=== PATIENT | male | born 1935 | race Caucasian/White ===

== ENCOUNTER 2017-06-06 11:20 | Day surgery (SDC) | payer MEDICARE, OTHER ==
[~2017-06-06] VITALS: Ht 168.9 cm; Wt 97.5 kg
[~2017-06-06 11:20] MED LIST: 0.9% Sodium Chloride 1,000 ML IV SCH; ASCO500C6 PO; CHOL200025 PO; DICL100G8 TOPICAL; SIMV20TA4 PO; Sodium Chloride LOK Flush 10 mL Syringe IV PRN; VIT1TABL83 PO; fentaNYL-PF 50 mCg/mL 2 mL Inj IVPUSH PRN
[2017-06-06 11:50] VITALS: BP 136/79; PULSE 47; RESP 15; O2SAT 97
[2017-06-06 12:18] VITALS: BP 142/88; PULSE 73; RESP 16; O2SAT 98
[2017-06-06 12:26] VITALS: BP 134/86; PULSE 82; RESP 14; O2SAT 97
--- NOTE | 2017-06-06 13:23 | ENDO ---
[address] [address] ENDOSCOPY PROCEDURE PATIENT: ELLEN LU : 1935 MR#: [id number] ADMIT: 06/06/2017 JOB ID: [id number] DATE: 06/06/2017 TYPE OF OPERATION: Colonoscopy with biopsy. PREOPERATIVE DIAGNOSIS(ES): History of tubular adenoma polyps. POSTOPERATIVE DIAGNOSIS(ES): 1. A 3 mm cecal polyp removed by cold biopsy forceps. 2. Mild sigmoid diverticulosis. ANESTHESIA: 1. Fentanyl 62.5 mcg. 2. Versed 2.5 mg IV administered. COMPLICATIONS: None. BLOOD LOSS: Minimal. DESCRIPTION OF PROCEDURE: After risks and benefits were explained to the patient, informed consent was obtained. After anesthesia administered, colonoscope was then inserted per rectum to cecum. Mucosa carefully examined. Prep of the patient was fair. After the procedure was done, the scope was withdrawn and procedure terminated. FINDINGS: Upon inspection of the anus, no masses, hemorrhoids, ulcers, fissures are seen. Throughout the entire examination, there is a 3 mm cecal polyp removed by cold biopsy forceps. There is mild sigmoid diverticulosis. Retroflexion was normal. IMPRESSIONS: 1. Mild sigmoid diverticulosis. 2. A 3 mm cecal polyp removed by cold biopsy forceps. RECOMMENDATION: 1. Await pathology results. 2. Repeat colonoscopy in five years given history of tubular adenoma polyps.
--- NOTE | 2017-06-10 15:28 | PATH ---
SURGICAL PATHOLOGY Attending Physician:Juan Jose Mcelroy MD CASE STATUS: Signed Out PATIENT NAME: ELLEN LU PID: [id number] : 1935 DATE COLLECTED:06/06/2017 19:30 SPECIMEN: Colon, Polyp CLINICAL HISTORY: 1). CECAL POLYP FINAL DIAGNOSIS: 1.CECAL POLYP, BIOPSY: - COLONIC MUCOSA WITH NO DIAGNOSTIC ABNORMALITY, CONSISTENT WITH POLYPOID REDUNDANCY. - Additional deeper levels examined. COMMENT: As part of routine quality control tech, the case was also reviewed by Dr. Gilliam who agrees with the above interpretation. ICD10 K57. GROSS DESCRIPTION: The specimen is received in one formalin filled container labeled with the patient's name, sublabeled "cecal polyp" and consists of a 0.3 x 0.2 x 0.2 CM portion of tissue which is entirely submitted in one cassette. 06/06/2017DC MICRO DESCRIPTION: See diagnosis. ICD-9 CODES: CPT CODES: 1: 14665 Electronically Signed Out Ander Garner MD [facility] [address], [place] [address] Technical component performed at [facility], [address] [place] [address] Ave[address], [place], [address]
== END 2017-06-06 23:59 | disposition home or self-care (01) ==
LOC: END 11:20
PROVIDERS: ATTEND Internal Medicine Gastroenterology
DX: Z12.11 Encounter for screening for malignant neoplasm of colon (principal); Z86.010 Personal history of colon polyps; K63.5 Polyp of colon; K57.30 Diverticulosis of large intestine without perforation or abscess without bleeding; R73.03 Prediabetes; E78.5 Hyperlipidemia, unspecified; F17.210 Nicotine dependence, cigarettes, uncomplicated
CPT/HCPCS: 45380; 88305; G0500; J2250; J3010; J7030

== ENCOUNTER 2017-06-30 17:55 | Observation (INO) | payer MEDICARE, OTHER ==
[~2017-06-30] VITALS: Ht 170.2 cm; Wt 110.0 kg
[~2017-06-30 17:55] MED LIST changes: -0.9% Sodium Chloride 1,000 ML IV SCH; -Sodium Chloride LOK Flush 10 mL Syringe IV PRN; -fentaNYL-PF 50 mCg/mL 2 mL Inj IVPUSH PRN
[2017-06-30 18:07] VITALS: BP 169/97; PULSE 75; RESP 16; O2SAT 92
[2017-06-30 19:03] LABS: BASOPHILS % (AUTO) 0.3 % (0-3); EOSINOPHILS % (AUTO) 3.1 % (0-5); MONOCYTES % (AUTO) 8.7 % (4-12); Mean Corpuscular Hemoglobin 33.6 pg (27.0-35.0); Mean Corpuscular Volume 97.2 fL (81-100); NEUTROPHILS % (AUTO) 58.9 % (40-74); Platelet Count 166 bil/L (150-400)
--- NOTE | 2017-06-30 19:04 | DRSVH ---
PROCEDURE: X-RAY CHEST ONE VIEW, PORTABLE ([id number]) INDICATIONS: pain TECHNIQUE: One view of the chest was acquired. COMPARISON: None. FINDINGS: Surgical changes and devices: None. Lungs and pleura: No pleural effusions or pneumothorax. Lungs are clear. Mediastinum: Mediastinal contours appear normal. Heart size is normal. Bones and chest wall: No suspicious bony lesions. Overlying soft tissues appear unremarkable. IMPRESSION: No acute pulmonary process. Dictated by: Radha Dobbs M.D. on 06/30/2017 at 19:02 Approved by: Radha Dobbs M.D. on 06/30/2017 at 19:03
--- NOTE | 2017-06-30 19:10 | ED.REPORT ---
HPI-Chest Pain 40 and Over Date of Service Jun 30, 2017 ED Provider: Sriram Dunbar MD An 82 year old male with a history of hyperlipidemia heart murmur, aortic valve stenosis on Pradaxa and pre-diabetes presents to the ED following an episode of sudden onset chest pain that occurred this afternoon. The episode lasted approx. 5 minutes and has completely resolved upon initial examination. He reports heavy exertion prior to symptom onset and has experienced similar pain in the past during exertion. The pain radiated to his right arm and jaw. Symptom onset occurred while the patient was loading boxes into his car. He contacted his adjunct nursing faculty who directed him to the ED for further evaluation. Patient has been taking the Pradaxa for the past 2 weeks. Nursing Notes Stated Complaint: CARDIOLOGY Chief Complaint: Chest Pain Nursing Notes Reviewed: Yes (Fleck not reconciled, ?on Pradaxa) Allergies: Coded Allergies: adhesive (Verified Adverse Reaction, Unknown, 06/30/17) Scheduled Ascorbic Acid (Vitamin C) 500 Mg Capsule.er 1,000 MG PO HS Cholecalciferol (Vitamin D3) (Vitamin D3) 2,000 Unit Tablet 2,000 UNIT PO HS Dabigatran Etexilate Mesylate (Pradaxa) 150 Mg Capsule 150 MG PO BID Simvastatin (Simvastatin) 20 Mg Tablet 20 MG PO HS Vit B Comp/C/FA/Iron/Vit E (Vitamin B Complex Tablet) 1 Each Tablet 1 EACH PO HS Scheduled PRN Diclofenac Gel (Voltaren Gel) 100 Gm Tube 1 APPLIC TOPICAL DAILY PRN PRN For Pain General Time Seen by MD: 19:08 Chief Complaint Chest pain Hx Obtained From: Patient Arrived By: Walk-in Sudden in Onset?: Yes Symptom Duration: Since onset Location: : Chest left: Chest right Quality: Painful Radiation: : Jaw: Shoulder right Migration/Movement: Reports: None Severity: Current: No pain currently Severity: Maximum: Moderate Pertinent Negative: Pt denies other symptoms Recent Healthcare: No recent doctor visit, No recent hospitalization Risk Factors )( CAD Risk Stratification HyperlipidemiaNo Diabetes mellitus, No Known CAD Risk factors reviewed )( TAD Risk Stratification Risk factors reviewed )( PE Risk Stratification Risk factors reviewed Past Medical History Past Medical History Hyperlipidemia Heart Murmur Aortic stenosis on Pradaxa Pre-diabetes Tobacco use disorder Denies: Coronary artery disease Past Surgical History Colon polyp removal Family History Reports: Coronary artery disease Smoking History Light Tobacco Smoker Social History Other Social History: Good social support, Local resident Ambulatory Status Independent Review of Systems + jaw pain Cardiovascular: Reports: Chest pain Musculoskeletal: Reports: Extremity pain (Radiates to R arm) Complete sys rev & neg: except as marked. Physical Exam Initial Vital Signs Vital Signs (First) Date Time Temp Pulse Resp B/P Pulse Ox O2 Delivery O2 Flow Rate FiO2 06/30/17 18:07 36.5 75 16 169/97 92 Room Air Initial VS: Reviewed, Vital signs normal Head / Eyes: Atraumatic, Normocephalic, PERRL Neck: Supple, Non-tender, Full range of motion Extremities: Vascular intact, Neuro intact, No swelling, No tenderness Skin: Warm, Dry, No cyanosis Neurologic: Alert, Oriented, Nonfocal Psychiatric: Mood/affect normal, Behavior normal, Normal thought content General/Constitutional: Awake, Alert, No acute distress Respiratory / Chest: Atraumatic, Breath sounds NL, Breath sounds = bilat, No respiratory distress, No chest tenderness Cardiovascular: Heart rate NL, Regular rhythm Heart Sounds / Murmur: Positive: Murmur present... (III/) Abdomen: Atraumatic, Soft, Non-tender Interpretation & Diagnostics Lab Results Interpretation Result Diagram: 06/30/17 1845 06/30/17 1845 Test 06/30/17 18:45 White Blood Count 6.4th/mm3 (3.8-10.1) Red Blood Count 4.26mil/mm3 (4.40-5.80) Hemoglobin 14.3g/dL (13.8-17.2) Hematocrit 41.4% (41.0-50.0) Mean Corpuscular Volume 97.2fL (81-100) Mean Corpuscular Hemoglobin 33.6pg (27.0-35.0) Mean Corpuscular Hemoglobin Concent 34.5% (32.0-37.0) Red Cell Distribution Width 12.5% (12.3-15.4) Platelet Count 166bil/L (150-400) Neutrophils (%) (Auto) 58.9% (40-74) Lymphocytes (%) (Auto) 28.4% (14-46) Monocytes (%) (Auto) 8.7% (4-12) Eosinophils (%) (Auto) 3.1% (0-5) Basophils (%) (Auto) 0.3% (0-3) Prothrombin Time 11.1sec (8.1-12.5) Prothromb Time International Ratio 1.04ratio Activated Partial Thromboplast Time 34.1sec (22.8-33.0) Sodium Level 141mEq/L (134-144) Potassium Level 4.0mEq/L (3.5-5.2) Chloride Level 104mEq/L (97-108) Carbon Dioxide Level 20mmol/L (18-29) Blood Urea Nitrogen 23mg/dL (8-27) Creatinine 1.26mg/dL (0.76-1.27) Estimat Glomerular Filtration Rate 59mL/min (>59) Glucose Level 81mg/dL (60-99) Calcium Level 9.7mg/dL (8.5-10.1) Magnesium Level 2.0mg/dL (1.6-2.6) Total Bilirubin 0.5mg/dL (0.0-1.2) Aspartate Amino Transf (AST/SGOT) 33U/L (0-50) Alanine Aminotransferase (ALT/SGPT) 47U/L (0-44) Alkaline Phosphatase 33U/L (25-160) Total Creatine Kinase 99U/L (21-232) Creatine Kinase MB 4.9ng/mL (0.0-10.4) Creatine Kinase MB % % (0.0-5.0) Troponin T < 0.010ug/L (0.0-0.011) Total Protein 7.1g/dL (6.4-8.4) Albumin 4.3g/dL (3.4-5.0) Thyroid Stimulating Hormone (TSH) 5.210uIU/mL (0.450-4.500) Hold Means Top Tube Received (Received) Lab Results Interpretation: CBC normal CMP normal Troponin #1 negative ECG Interpretation ECG Interpretation: Rate controlled A-fib Nonspecific intraventricular conduction delay No EKG available within our current EMR for comparison Time: 19:22 Interpreted by: ED physician X-Ray Chest Interpretation Chest Xray Interpretation: IMPRESSION: No acute pulmonary process. Dictated by: Radha Dobbs M.D. on 06/30/2017 at 19:02 Interpretation / Wet Read by: Interpret - Radiologist Re-Eval/Medical Decision Med Decision/Clinical Course This is a pleasant 82-year-old male without known prior coronary artery disease , does have a history of hyperlipidemia and is recently been diagnosed with atrial fibrillation and valvular disease with preserved EF on echocardiogram [address] Navarro the adjunct nursing faculty in consultation and was started on the anticoagulant Pradaxa for his chronic A. fib. The patient presents today with concern he may be having symptoms from the Pradaxa, however he describes her concerning presentation for possible angina: He has noted exertional chest pressure discomfort radiating to the shoulder and up into the jaw and neck there is relieved with rest, has been occurring with increasing frequency in recent days. Today cost, lifting some moderately heavy bottles, he developed the worst episode of the discomfort, but it resolved after about 5 minutes of rest. Call his adjunct nursing faculty in office and they advised him to come to the ED. He is asymptomatic here. He has not had stress testing. Patient clinically appears well and sitting no strenuous. He is in rate- controlled atrial fibrillation, no ischemic changes are evident on the EKG. Chest x-ray and lateral is normal. His last dose of Pradaxan was yesterday. He received aspirin and nitroglycerin in the department after discussion with cardiology. Given his clinical presentation is concerning for new onset angina , the patient's being admitted for serial enzymes and if those are negative, stress testing be considered. I discussed the case with cardiology for their recommendations (which including holding tonight's Pradaxa and using just ASA overnight tonight), a formal inpatient consultation is not yet been requested- and the plan is to have the hospitalist in the morning contact Dr. Navarro, the primary adjunct nursing faculty tomorrow as he is on for inpatient consultations (barring any clinical changes in the interim) Patient is admitted in stable condition. Source of Hx: Old records Time of Eval: 19:42 Patient Status: Pain resolved Re-Evaluation/Progress Note: Patient condition is re-evaluated. He is informed of his current and pending results. Patient is offered admission to the hospital and agrees with the plan to admit. All questions about the intended treatment plan are addressed. Consultation #1: Referral / Consult Name: Lisa Martin MD Consulted With: Cardiology Call Returned at: 19:56 Family Service Caseworker: Will see patient, Agrees with eval, Agrees with plan, Accepts admit Note: NOT OFFICIAL CONSULT: Discussed patient condition. Recommends against Pradaxa dose this evening. Will give aspirin and evaluate lab results. Consultation #2: Referral / Consult Name: Domo Coats MD Consulted With: Hospitalist Call Returned at: 20:11 Family Service Caseworker: Will see patient, Agrees with eval, Agrees with plan, Accepts admit Note: Will accept admission. Differential Diagnosis: Positive: Chest pain, acute, Dysrhythmia, Negative: Esophageal rupture, Pneumonia, Pneumothorax, Pulmonary edema, Pulmonary embolism, Rib fracture, Stab wound chest Counseled Regarding: Diagnosis, Lab results, Need for admission Discharge & Departure Primary Impression: Unstable angina Disposition: ADMITTED TO HOSPITAL Discharge Condition All VS Reviewed: Yes Condition: Stable Referrals: Victorino Hedrick DO (PCP) Scribe Attestation Portions of this note were transcribed by Ayo Salcedo. I, Dr. Dunbar, personally performed the history, physical exam and medical decision-making; I reviewed and confirmed the accuracy of the information in the transcribed note. Signed by: Ayo Salcedo, 06/30/17. copies to: Victorino Hedrick Matthew F MD Jun 30, 2017 19:10 AYO SALCEDO Jun 30, 2017 19:30
[2017-06-30 19:19] LABS: TROPONIN T < 0.010 ug/L (0.0-0.011)
[2017-06-30 19:54] VITALS: BP 156/67; PULSE 78; RESP 20; O2SAT 98
[2017-06-30] MEDS ORDERED: Nitroglycerin 2% 1 Gm Ointment TOPICAL SCH (20:00)
[2017-06-30] MEDS ORDERED: Alum-Mag Hydrox-Simeth 30 mL Suspension PO PRN (20:20)
[2017-06-30] MEDS ORDERED: Polyethylene Glycol (PEG) 17 Gm Powder PO PRN (20:20)
[2017-06-30] MEDS ORDERED: Ondansetron 2 mg/mL 2 mL Inj IVPUSH PRN (20:20)
[2017-06-30] MEDS ORDERED: Atropine 1 mg/10 mL (Code) Syringe IVPUSH PRN (20:20)
[2017-06-30] MEDS ORDERED: Senna-Docusate 8.6-50 mg Tablet PO PRN (20:20)
--- NOTE | 2017-06-30 20:44 | PCM.HPMED ---
Subjective Date of Service Jun 30, 2017 Primary Provider: Admitting Physician: Primary Care Physician: Victorino Hedrick DO Attending Physician: Admit Status: From the Emergency Department Chief Complaint: Chest pain on exertion History of Present Illness: Patient is an 82-year-old male with a history of hyperlipidemia, A. fib, and heart murmur present to the ED after an episode of chest pain on exertion. Patient presented today after he was told to seek medical help when he called his compliance nurse's office. He had been lifting boxes into his truck when he developed significant chest pain that radiated into his jaw, left eye, and down his left arm. He was unable to describe the quality of this pain but states that he has been having similar episodes for approximately 2 weeks. He has attributed the symptoms to his initiation of Pradaxa a couple of weeks ago. Symptoms resolved in less than 5 minutes of rest. Patient admits to sweating during these episodes. Patient denies nausea, vomiting, numbness, headache, shortness of breath, bleeding, bruising. Of note, patient is a poor historian with limited awareness of his medical conditions. Review of Systems: Complete ROS was performed and pertinent positives and negatives included in the history of present illness. All other findings were negative. Allergies Coded Allergies: adhesive (Verified Adverse Reaction, Unknown, 06/30/17) Home Medications From [facility], not yet confirmed [employer] [id number] 1935 06/19/2017 02:00 PM 10/25 metronidazole 0.75 % topical gel apply by topical route 2 times every day a thin layer to the affected area(s) in the morning and evening Pradaxa 150 mg capsule take 1 capsule by oral route 2 times every day simvastatin 20 mg tablet take 1 tablet by oral route every day in the evening sulfacetamide sodium-sulfur 10 %-5 % (w/w) topical cleanser cleanse face 1-2 times daily Sumaxin CP 10 %-4 % topical kit cleanse face 1-2 times daily vitamin B complex capsule 1 cap by mouth per day Vitamin C 1,000 mg tablet 1 tab by mouth daily Vitamin D3 2,000 unit capsule 1 cap by mouth daily Voltaren 1 % topical gel apply (2G) by topical route 3 times every day to the affected area(s) as needed for pain. PMH 1. Atrial fibrillation, diagnosed approximately 2 weeks ago 2. Heart murmur 3. Prediabetes 4. Hyperlipidemia Surgical History 1. Bilateral hip replacement 2. Varicose Vein removed right leg 3. Jaw surgery Family History 1. Mother stroke at age in 80s 2. Father had heart disease Social History Hx Alcohol Use: Yes (1 to 2 glasses of wine daily) Hx Substance Use: No Hx Tobacco Use: Yes (Occasional pipe smoking) Smoking Status: Light Tobacco Smoker Living Arrangement: Alone Exam Vital Signs Vital Sign - Last Date Time Temp Pulse Resp B/P Pulse Ox O2 Delivery O2 Flow Rate FiO2 06/30/17 19:54 78 20 156/67 98 06/30/17 18:07 36.5 Room Air Exam General: Nondistressed, well-developed well-nourished male HEENT: NC/AT, PERRLA, EOM intact. Nontender sinuses, no nasal discharge. Good dentation, no erythema, nor exudate present in oropharynx. No thyromegaly appreciated. CV: Irregular rate, systolic murmur appreciated best over left sternal border. No carotid bruits appreciated, pulses 2+ bilaterally lower extremity and upper extremity. RESP: Clear to auscultation bilaterally, no wheezes or rhonchi appreciated ABD: Bowel sounds normal, nondistended, nontender to palpation. EXT: No joint swelling, no edema appreciated LYMPH: No cervical or axillary adenopathy appreciated NEURO: Symmetric face, cranial nerves grossly intact, strength intact bilaterally upper and lower extremities, sensation to light touch intact bilaterally upper and lower extremities. PSYCH: Oriented 3. Linear and appropriate conversation. Skin: No rashes or ecchymosis appreciated. Pigment changes in lower extremities consistent with venous stasis Lab and Diagnostics Result Diagram: 06/30/17184406/30/171844 Assessment & Plan Patient is an 82-year-old male with a recent diagnosis of atrial fibrillation and heart murmur presented with chest pain 1. Chest pain on exertion, present upon admission and ongoing Patient has several risk factors for coronary disease and his story is convincing -Negative troponin 1 -Negative CK-MBs - holding dose of Pradaxa in case he needs invasive cardiac procedures -Stress test tomorrow AM 2. Atrial fibrillation, present on admission and ongoing -Hold blood thinner for the time being, patient believes this is contributing to his chest pain 3. Hypothyroidism, present upon admission and ongoing -This is a new diagnosis discovered with admission. TSH of 5.64 -Start patient on 12.5mcg levothyroxine, recommend outpatient follow-up -This may be contributing to his atrial fibrillation and chest pain 4. Hyperlipidemia, present upon admission and ongoing -Continue home medications 5. Normocytic anemia, present upon admission and ongoing -patient has RBC of 4.26 on admission with all other CBC values as normal. -Patient had colonoscopy 2 weeks ago with the removal of one polyp -In the setting of blood thinners with recent colonoscopy, patient may have a slow bleed. Stool Guaic pending Patient is being admitted as observation status. I expect her to spend less than 2 midnights in the hospital Pain Evaluation: Adequate Pain Control VTE Prophylaxis: SCDs Resuscitation Status: DNR/DNI:Do Not Resuscitate/Intubate Attending Statement The patient was seen and examined together with Dr. Henao on 06/30 and I agree with the history, exam and plan as outlined in the note above. Lissa Henao DO Jun 30, 2017 20:43 Domo Coats MD Jul 01, 2017 06:46
[2017-06-30 20:51] LABS: INR 1.04 ratio
[2017-06-30 20:56] VITALS: BP 146/68; PULSE 79; RESP 20; O2SAT 98
[2017-06-30 20:59] LABS: Creatine Kinase 99 U/L (21-232)
[2017-06-30] MEDS ORDERED: DABI150C PO (21:18)
[2017-06-30 22:15] VITALS: PULSE 81
[2017-06-30 22:28] VITALS: BP 164/81; PULSE 67; RESP 21; O2SAT 95
--- NOTE | 2017-06-30 23:01 | NUR ---
Admission Pt admitted for exertional chest pain. He is pain free at present. Oriented to room/call light/bathroom. Telemetry is afib. Pt understands to report to nursing for any further episode of chest pain Will cont to monitor
[2017-06-30] MEDS: 0.9% Sodium Chloride 1,000 ML IV SCH (23:53)
--- NOTE | 2017-07-01 00:15 | PCM.ADCARE ---
Advance Care Planning Note Purpose of Encounter: Active Diagnoses: Persistent Atrial fibrillation Prediabetes Hyperlipidemia These active diagnoses are sufficient risk that focused discussion on advance car planning is indicated in order to allow the patient to thoughtfully consider personal goals of care and if situations arise that prevent the ability to personally give input to insure appropriate representation of their personal desires through documentation or informed surrogate decision makers Parties in Attendance: me and patient Decisional Capacity: Good Goals of Care Determinations: I reviewed all his medical conditions and his desires for ongoing aggressive care, including potential intubation and mechanical ventilation as well as CPR. Also discussed who would speak on his behalf should he be unable to do so, she states his [employer] has Power of Insurance Verification Clerk Patient has expressed wish to be DNR/DNI. Absolutely no resuscitation or heroic measures CODE STATUS: DNR/DNI Time Spent Adv.Care Planning: Total time spent txne-ap-cloc in education and discussion directly related to Advance Care Plannin minutes Domo Coats MD Jul 01, 2017 00:15
[2017-07-01] MEDS: Sodium Chloride LOK Flush 10 mL Syringe IVFLUSH SCH ×3 (01:01→16:30)
[2017-07-01 02:12] LABS: BASOPHILS % (AUTO) 0.2 % (0-3); EOSINOPHILS % (AUTO) 3.4 % (0-5); MONOCYTES % (AUTO) 9.2 % (4-12); Mean Corpuscular Hemoglobin 33.4 pg (27.0-35.0); Mean Corpuscular Volume 97.4 fL (81-100); NEUTROPHILS % (AUTO) 50.7 % (40-74); Platelet Count 157 bil/L (150-400)
[2017-07-01 03:46] VITALS: BP 136/73; PULSE 60; RESP 20; O2SAT 96
[2017-07-01 03:57] LABS: Creatine Kinase 69 U/L (21-232)
[2017-07-01 04:01] LABS: TROPONIN T < 0.010 ug/L (0.0-0.011)
[2017-07-01 04:54] VITALS: BP 161/90
--- NOTE | 2017-07-01 05:27 | PCM.PNMED ---
Subjective Date of Service Jul 01, 2017 Subjective Rapid response called on patient after loom fixer helper noted a 10 seconds pause. Patient was sleeping and was asymptomatic Patient will be transferred to [facility] for close monitoring Domo Coats MD Jul 01, 2017 05:27
--- NOTE | 2017-07-01 05:40 | NUR ---
Telemetry Pt had a 10sec pause. PHYS ASST called by mri ct tech. Pt shouted, "I'm OK!" when he was suddenly awakened (pt had been sleeping). VS stable. aware of the pause. Orders received to transfer the pt to [facility] I explained to pt that he would move to the cardiac floor. Pt verbalized understanding.
[2017-07-01 05:41] LABS: APPEARANCE,URINE CLEAR (CLEAR,HAZY); COLOR,URINE YELLOW (YELLOW); OCCULT BLOOD,URINE NEGATIVE (NEGATIVE); PH,URINE 5.5 (5.0-8.0); UROBILINOGEN,URINE NORMAL (NORMAL)
[2017-07-01 08:15] VITALS: BP 131/78; PULSE 63; RESP 20; O2SAT 96
[2017-07-01 08:49] VITALS: PULSE 60
[2017-07-01] MEDS: 0.9% Sodium Chloride 1,000 ML IV SCH (08:49)
[2017-07-01 13:29] VITALS: BP 151/73; PULSE 67; RESP 24; O2SAT 98
--- NOTE | 2017-07-01 13:59 | NUR ---
Case Management: SCAR given and explained to pt. Ame MOTA RN
--- NOTE | 2017-07-01 14:37 | DRSVH ---
PROCEDURE: 1 DAY TREADMILL STRESS TEST Rest and exercise myocardial perfusion SPECT; gated images not acquired. RADIOPHARMACEUTICAL: 9.66 mCi Tc-99m tetrafosmin IV at rest and 31.3 mCi Tc-99m tetrafosmin IV at pe ak exercise. [id number] was performed. INDICATIONS: chest pain on exertion. TECHNIQUE: Radiopharmaceutical was injected at peak stress test, and also at rest. SPECT images wer e obtained. SPECT myocardial perfusion images were displayed in short axis, horizontal long axis, an d vertical long axis views. Images were reviewed using [employer] software. COMPARISON: None. CARDIAC STRESS: A manual treadmill exercise tolerance test was performed by the patient under the supervision of an a ttending staff. The patient exercised for 1 minute and 58 seconds; functional aerobic impairment (FA I) is +50 %. Hemodynamic data: There is normal blood pressure and heart rate response to exercise stress. Patien t achieved 122% of maximum predicted heart rate at peak exercise. Symptoms: Patient denied chest pain during exercise. EKG: Baseline EKG show atrial fibrillation. With minimal exertion there was rapid ventricular respon se and hypertensive blood pressure response. The resting blood pressure was 132/68 mmHg and at peak s tress the blood pressure was 220/100 mmHg. At baseline heart rate was 76 beats per minute at peak str ess the heart rate was 168 beats per minute. FINDINGS: Raw data: There is good myocardial labeling by radiotracer. No significant motion artifacts. Left ventricle function: Gated images were unable to be obtained for evaluating wall motion and ejec tion fraction, due to irregular heart rate. Myocardial perfusion: There is a mild perfusion defect involving the inferior wall. However the perfu kylah defect improves with prone stress imaging. Quantitative analysis has a sum stress score of zero. IMPRESSION: Normal myocardial perfusion study. Normal LV ejection fraction without focal wall motion on mellitus. No evidence of ischemia on treadmill EKG however there is presence of rapid ventricular heart rate response in the setting of atrial fibrillation. There is also hypertensive blood pressure response as described above. Patient has poor exercise tolerance. Overall there is no evidence of sig nificant ischemia based on today's perfusion images. Dictated by: Arjun Tuttle Jr., M.D. on 07/01/2017 at 14:29 Approved by: Arjun Tuttle Jr., M.D. on 07/01/2017 at 14:35
--- NOTE | 2017-07-01 16:45 | PCM.DIMED ---
Miguel Angel Henry DO 07/01/17 1644: Discharge Instructions Date of Service Jul 01, 2017 Dates of Hospitalization Jun 30, 2017 at 21:18 Discharge Diagnosis Discharge Diagnosis Chest pain Atrial fibrillation, present on admission and ongoing Subclinical hypothyroidism, new, present stable Hyperlipidemia, present upon admission and ongoing Normocytic anemia, present upon admission, stable Medication Instructions Additional med instructions No new medication added. Please continue to take your Pradaxa This medication most likely did not contribute to your chest pain Diet Discharge Diet: Heart Healthy Activity Discharge Activity: No restrictions Call your provider Call your provider for: Shortness of breath, Chest pain Patient Instructions Patient Instructions You were admitted on this admission for chest pain with myocardial ischemia ruled out. Based upon your stress test and blood work, you do not have a heart attack. While you were here, we did note that you have a 10 second paulse of your heartbeat. Might be related to your atrial fibrillation We recommend that you follow-up with your skimmer reverberatory as scheduled at the end of this month. Please continue to take Pradaxa as prescribed As for your thyroid hormone, your TSH was slightly elevated at 5.21 This is likely age-related, recommend that you follow-up with your primary care provider in repeating TSH level in 1 year. Follow-up with PCP in: 1 week (follow-up on an as needed basis with your primary care provider should you continue to have chest pain) Dillan Basilio MD 07/07/17 2575: Discharge Instructions Attending's Statement I interviewed and examined the patient prior to discharge. I agree with the assessment and plan as stated above. Miguel Angel Henry DO Jul 01, 2017 16:44 Dillan Basilio MD Jul 07, 2017 17:55
--- NOTE | 2017-07-01 16:51 | PCM.DC.MED ---
Discharge Summary Date of Service Jul 01, 2017 Dates of Hospitalization Date of Hospital Admission Jun 30, 2017 at 21:18 Date of Discharge: Jul 01, 2017 Providers: Admitting Physician: Domo Coats MD Primary Care Physician: Victorino Hedrick DO Attending Physician: Dillan Basilio MD Procedures Invasive Procedures PROCEDURE: 1 DAY TREADMILL STRESS TEST INDICATIONS: chest pain on exertion. IMPRESSION: Normal myocardial perfusion study. Normal LV ejection fraction without focal wall motion on mellitus. No evidence of ischemia on treadmill EKG however there is presence of rapid ventricular heart rate response in the setting of atrial fibrillation. There is also hypertensive blood pressure response as described above. Patient has poor exercise tolerance. Overall there is no evidence of significant ischemia based on today's perfusion images. Dictated by: Arjun Tuttle Jr., M.D. on 07/01/2017 at 14:29 Brief History Patient is an 82-year-old male with a history of hyperlipidemia, A. fib, and heart murmur present to the ED after an episode of chest pain on exertion. 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 He had been lifting boxes into his truck when he developed significant chest pain that radiated into his jaw, left eye, and down his left arm. He was unable to describe the quality of this pain but states that he has been having similar episodes for approximately 2 weeks. He has attributed the symptoms to his initiation of Pradaxa a couple of weeks ago. Symptoms resolved in less than 5 minutes of rest. Patient admits to sweating during these episodes. Patient denies nausea, vomiting, numbness, headache, shortness of breath, bleeding, bruising. Of note, patient is a poor historian with limited awareness of his medical conditions. Hospital Course Patient is an 82-year-old male with a recent diagnosis of atrial fibrillation and heart murmur presented with chest pain. Cardiac workup were negative. Most likely secondary to musculoskeletal pain due to vigorous physical activities within the past week. 1. Chest pain on exertion, present upon admission and ongoing Patient has several risk factors for coronary disease and his story is convincing -Negative troponin 3, CK/CK-MB negative -Treadmill nuclear stress test unremarkable, no perfusion defect 2. Atrial fibrillation, present on admission and ongoing -Worrisome 10 second pulse noted midnight, not on any jazmyne blockers -Patient to follow-up with cardiology of this months end -Continue Pradaxa 3. Subclinical hypothyroidism, new, stable -Suggest repeating TSH in 1 year 4. Hyperlipidemia, present upon admission and ongoing -Continue home medications 5. Normocytic anemia, present upon admission and ongoing -Hemoglobin 12.9, probable dilutional No changes in medication Exam Vital Signs (Last) Date Time Temp Pulse Resp B/P Pulse Ox O2 Delivery O2 Flow Rate FiO2 07/01/17 13:29 36.8 67 24 151/73 98 Room Air Exam General: No acute distress, appropriately interactive HEENT: Normocephalic, atraumatic. PERRLA, EOMI, Anicteric sclerae, moist conjunctivae. Neck: No JVD, No bruits. No lymphadenopathy or thyromegaly. Cardiovascular: Irregular rate and irregular rhythm, 2+ systolic heart murmur, no rubs or gallops noted Pulmonary: b/l air sound with no crackles, wheezes, or rhonchi. no use of accessory muscles. Abdomen: +Bowel sound, Soft, nontender, nondistended. Extremities: No clubbing or cyanosis, no lymphedema, no b/l lower leg edema Skin: Normal temperature, turgor, and texture; no rash. No visualized skin ulcer. Neurological: CN II-VII grossly intact, moving equally on all 4 extremities Psychiatric: Normal mood and affect. AOx3 Test 06/30/17 18:45 07/01/17 02:05 07/01/17 05:26 Prothrombin Time 11.1sec (8.1-12.5) Prothromb Time International Ratio 1.04ratio Activated Partial Thromboplast Time 34.1sec (22.8-33.0) Hemoglobin A1c 5.7% (4.8-5.6) Magnesium Level 2.0mg/dL (1.6-2.6) Total Bilirubin 0.5mg/dL (0.0-1.2) Aspartate Amino Transf (AST/SGOT) 33U/L (0-50) Alanine Aminotransferase (ALT/SGPT) 47U/L (0-44) Alkaline Phosphatase 33U/L (25-160) Total Protein 7.1g/dL (6.4-8.4) Albumin 4.3g/dL (3.4-5.0) Thyroid Stimulating Hormone (TSH) 5.210uIU/mL (0.450-4.500) Hold Means Top Tube Received (Received) White Blood Count 5.9th/mm3 (3.8-10.1) Red Blood Count 3.86mil/mm3 (4.40-5.80) Hemoglobin 12.9g/dL (13.8-17.2) Hematocrit 37.6% (41.0-50.0) Mean Corpuscular Volume 97.4fL (81-100) Mean Corpuscular Hemoglobin 33.4pg (27.0-35.0) Mean Corpuscular Hemoglobin Concent 34.3% (32.0-37.0) Red Cell Distribution Width 12.5% (12.3-15.4) Platelet Count 157bil/L (150-400) Neutrophils (%) (Auto) 50.7% (40-74) Lymphocytes (%) (Auto) 35.8% (14-46) Monocytes (%) (Auto) 9.2% (4-12) Eosinophils (%) (Auto) 3.4% (0-5) Basophils (%) (Auto) 0.2% (0-3) Sodium Level 140mEq/L (134-144) Potassium Level 3.7mEq/L (3.5-5.2) Chloride Level 104mEq/L (97-108) Carbon Dioxide Level 19mmol/L (18-29) Blood Urea Nitrogen 22mg/dL (8-27) Creatinine 0.93mg/dL (0.76-1.27) Estimat Glomerular Filtration Rate 83mL/min (>59) Glucose Level 96mg/dL (60-99) Calcium Level 9.1mg/dL (8.5-10.1) Total Creatine Kinase 69U/L (21-232) Creatine Kinase MB 3.8ng/mL (0.0-10.4) Creatine Kinase MB % % (0.0-5.0) Troponin T < 0.010ug/L (0.0-0.011) Triglycerides Level 70mg/dL (0-149) Cholesterol Level 151mg/dL (100-199) LDL Cholesterol, Calculated 63.000mg/dL (0-99) VLDL Cholesterol 14.000mg/dL HDL Cholesterol 74mg/dL (>39) Cholesterol/HDL Ratio 2.04 (0.0-4.4) Free Thyroxine 1.07ng/dL (0.82-1.77) Urine Color Yellow (YELLOW) Urine Appearance Clear (CLEAR,HAZY) Urine pH 5.5 (5.0-8.0) Urine Specific [place] 1.030 (1.003-1.035) Urine Protein Negativemg/dL (NEG,TRACE) Urine Glucose (UA) Negativemg/dL (NEGATIVE) Urine Ketones Tracemg/dL (NEGATIVE) Urine Occult Blood Negative (NEGATIVE) Urine Nitrite Negative (NEGATIVE) Urine Bilirubin Negative (NEGATIVE) Urine Urobilinogen Normalmg/dL (NORMAL) Urine Leukocyte Esterase Negative (NEGATIVE) Urine RBC 0-2/hpf (0-2) Urine WBC 0-5/hpf (0-5) Urine Epithelial Cells Few/hpf (NONE-MOD) Urine Crystals None seen (NONE SEEN) Urine Bacteria Few/hpf (NONE-FEW) Urine Hyaline Casts Occasional/lpf (NONE) Urine Granular Casts None seen (NONE SEEN) Urine Waxy Casts None seen (NONE SEEN) Urine Red Blood Cell Casts None seen (NONE SEEN) Urine White Blood Cell Casts None seen (NONE SEEN) Urine Mucus Present (None Seen) Urine Trichomonas None seen (NONE SEEN) Urine Yeast None (NONE SEEN) Urinalysis Comment None Urine Culture Reflexed Not indicated Discharge Medications Discharge Medications Ascorbic Acid (Vitamin C) 500 Mg Capsule.er 1,000 MG PO HS (Reported) Cholecalciferol (Vitamin D3) (Vitamin D3) 2,000 Unit Tablet 2,000 UNIT PO HS ( Reported) Dabigatran Etexilate Mesylate (Pradaxa) 150 Mg Capsule 150 MG PO BID (Reported) Simvastatin (Simvastatin) 20 Mg Tablet 20 MG PO HS (Reported) Vit B Comp/C/FA/Iron/Vit E (Vitamin B Complex Tablet) 1 Each Tablet 1 EACH PO HS (Reported) As needed Diclofenac Gel (Voltaren Gel) 100 Gm Tube 1 APPLIC TOPICAL DAILY PRN PRN For Pain (Reported) Followup Plan Discharge Diet: Heart Healthy Discharge Activity: No restrictions Follow-up with PCP in: 1 week (follow-up as needed for chest pain) Time spent 35 minutes Attending Statement I interviewed and examined the patient on rounds today. Repeat TSH in the next months may be advisable. I agree with the assessment and plan as stated above. copies to: Victorino Hedrick Phuc H DO Sep 12, 2017 16:33 Dillan Basilio MD Jul 01, 2017 17:22
--- NOTE | 2017-07-01 18:00 | NUR ---
Discharge Patient ambulated off unit with RN in a stable condition. IV DC'd intact, tele removed, all personal belongings with patient. No new medications to discuss, all other continued medications and next due times discussed --patient and friend both verbalized understanding. Patient had pre existing outpatient appointment with cardiology scheduled for the end of this month. No questions at time of discharge.
== END 2017-07-01 17:40 | disposition home or self-care (01) ==
LOC: SED 17:55 → MPC 21:18 → PCC 07-01 08:17
PROVIDERS: ADMIT Hospitalist; ATTEND Internal Medicine
DX: R07.9 Chest pain, unspecified (principal); I48.91 Unspecified atrial fibrillation; E02 Subclinical iodine-deficiency hypothyroidism; E78.5 Hyperlipidemia, unspecified; D64.9 Anemia, unspecified; R01.1 Cardiac murmur, unspecified; I35.8 Other nonrheumatic aortic valve disorders; R73.03 Prediabetes; F17.210 Nicotine dependence, cigarettes, uncomplicated; Z79.01 Long term (current) use of anticoagulants; Z66 Do not resuscitate
CPT/HCPCS: 36415; 71010; 78452; 80048; 80053; 80061; 81000; 82550; 82553; 83036; 83735; 84439; 84443; 84484; 85025; 85610; 85730; 93005; 93017; 99285; A9502; G0378; J7030